=== PATIENT | female | born 1930 | race Caucasian/White ===

== ENCOUNTER 2017-05-13 13:33 | Emergency (ER) | payer MEDICARE ==
[~2017-05-13] VITALS: Ht 167.6 cm; Wt 64.0 kg
[~2017-05-13 13:33] MED LIST: AMLO5TAB96 PO; ASPI81 PO; CALC600T34 PO; CLOP75 PO; ENAL5TAB98 PO; LEVO25TA36 PO; LOVA1TAB47 PO; TAB-TAB PO; TOPR50TA PO; VITA400C70 PO
[2017-05-13 14:03] VITALS: BP 195/96; PULSE 67; RESP 16; TEMP 98; O2SAT 100
[2017-05-13] MEDS ORDERED: MULT1TAB46 PO (14:33)
[2017-05-13] MEDS ORDERED: ISOS30TA3 PO (14:33)
[2017-05-13] MEDS ORDERED: VITA100064 PO (14:33)
[2017-05-13] MEDS ORDERED: LEVO75TA43 PO (14:33)
[2017-05-13] MEDS ORDERED: PLAV75TA29 PO (14:33)
[2017-05-13] MEDS ORDERED: CALC-262 PO (14:33)
[2017-05-13] MEDS ORDERED: KETOROLAC TROMETHAMINE 60 MG/2 ML (IM) VIAL IM ONE (15:30)
--- NOTE | 2017-05-13 15:47 | PD ---
HPI Chief Complaint: Musculoskeletal Complaint Time Seen by Provider: 15:03 Travel History International Travel<30 days: No Contact w/Intl Traveler<30days: No Traveled to known affect area: No History of Present Illness HPI This is a 87-year-old female here with nontraumatic right shoulder pain. She reports this pain is similar to her prior episodes of bursitis. She has pain with range of motion of the shoulder and palpation of the anterior aspect of the shoulder. Denies fever chills. No chest pain or shortness of breath. Symptom severity is mild. Aggravated by movement and slightly relieved with rest. PFSH Past Medical History Cancer: Yes (left breast) Cardiac Catheterization: Yes High Cholesterol: Yes Hypertension: Yes Radiation Therapy: Yes Thyroid Disease: Yes (hypo) Tetanus Vaccination: < 5 Years Influenza Vaccination: Yes ?: Not Past Surgical History Appendectomy: Yes Coronary Stent: Yes (x 3) Tonsillectomy: Yes Other Surgery: Yes (left lumpectomy ) Social History Alcohol Use: Yes (occass.) Tobacco Use: No Substance Use: No Allergies-Medications (Allergen,Severity, Reaction): Uncoded Allergies: all statins (Allergy, Intermediate, muscle weakness, 05/13/17) Reported Meds & Prescriptions Reported Meds & Active Scripts Active Reported Isosorbide Mononitrate ER (Isosorbide Mononitrate) 30 Mg Cristian 30 Mg PO DAILY Vitamin D3 (Cholecalciferol) 1,000 Unit Tab 1,000 Units PO DAILY Multi Vitamin Daily (Multiple Vitamin) 1 Tab Tab 1 Tab PO DAILY Levoxyl (Levothyroxine Sodium) 75 Mcg Tab 75 Mcg PO DAILY Plavix (Clopidogrel Bisulfate) 75 Mg Tab 75 Mg PO DAILY Calcium with Vit D Tablet (Calcium Citrate/Vitamin D2) 1,500 Mg-200 Unit Tablet 1 Tab PO DAILY Review of Systems Except as stated in HPI: all other systems reviewed are Neg General / Constitutional: No: Fever Eyes: No: Visual changes HENT: No: Headaches Cardiovascular: No: Chest Pain or Discomfort Respiratory: No: Shortness of Breath Gastrointestinal: No: Abdominal Pain Genitourinary: No: Dysuria Physical Exam Narrative GENERAL: Alert and well-appearing 87-year-old female SKIN: Warm and dry. HEAD: Normocephalic. EYES: No injection or drainage. NECK: Supple CARDIOVASCULAR: Regular rate and rhythm RESPIRATORY: Breath sounds equal bilaterally. No accessory muscle use. GASTROINTESTINAL: Abdomen soft, non-tender, nondistended. MUSCULOSKELETAL: No cyanosis, or edema. Right upper extremity: +TTP anterior aspect of the shoulder. No deformity. No warmth or erythema of the shoulder. Full passive range of motion. Pain with active forward extension and external rotation of the shoulder. 2+ distal pulses. Brisk cap refill. Normal sensation. BACK: Nontender without obvious deformity. No CVA tenderness. Data Data Last Documented VS Vital Signs Date Time Temp Pulse Resp B/P (MAP) Pulse Ox O2 Delivery O2 Flow Rate FiO2 05/13/17 15:48 161/89 (113) 05/13/17 14:03 98.0 67 16 100 Orders Orders Ketorolac Inj (Toradol Inj) (05/13/17 15:30) [facility] Medical Decision Making Medical Screen Exam Complete: Yes Emergency Medical Condition: Yes Differential Diagnosis Bursitis, tendinitis, arthritis Narrative Course 87-year-old female here with nontraumatic right shoulder pain. She has a history of bursitis in the shoulder reports symptoms similar. She was given a shot of Toradol and reports symptom improvement. Patient be discharged home Diagnosis Primary Impression: Shoulder pain Qualified Codes: M25.511 - Pain in right shoulder Referrals: Primary Care Physician Additional Instructions: Ultram as needed for pain. Scripts Tramadol (Ultram) 50 Mg Tab 50 MG PO Q6H Y for PAIN, #14 TAB 0 Refills Prov: Rosmery Muñoz 05/13/17 Disposition: 01 DISCHARGE HOME Condition: Stable Rosmery Muñoz May 13, 2017 15:47
[2017-05-13 15:48] VITALS: BP 161/89
[2017-05-13] MEDS ORDERED: TRAM50 PO (15:57)
== END 2017-05-13 16:01 | disposition home or self-care (01) ==
LOC: PHEFT 13:33
DX: M25.511 Pain in right shoulder (principal); E78.00 Pure hypercholesterolemia, unspecified; I10 Essential (primary) hypertension; E03.9 Hypothyroidism, unspecified; Z79.02 Long term (current) use of antithrombotics/antiplatelets; Z79.899 Other long term (current) drug therapy
CPT/HCPCS: 96372; 99283; J1885